=== PATIENT | female | born 1980 | race Caucasian/White ===

== ENCOUNTER 2022-01-13 02:02 | Emergency (ER) | payer OTHER ==
[~2022-01-13] VITALS: Ht 170.2 cm; Wt 77.1 kg
--- NOTE | 2022-01-13 02:25 | NUR ---
Dr. Curiel at bedside for MSE
--- NOTE | 2022-01-13 02:41 | NUR ---
Lab at bedside
[2022-01-13 03:04] LABS: *BILIRUBIN,URIN NEGATIVE (NEGATIVE); *BLOOD, URINE 1+ (NEGATIVE); *CLARITY,URINE CLEAR (CLEAR); *COLOR,URINE YELLOW (YELLOW); *KETONES,URINE 4+ (NEGATIVE); *UROBILINOGEN,URINE 0.2 E.U./dl (NORMAL); LEUKOCYTE ESTERASE ,URINE TRACE (NEGATIVE); NITRITE, URINE NEGATIVE (NEGATIVE); PH,URINE 6.5 (5.0-8.0); UGLUCOSE NEGATIVE (NEGATIVE)
[2022-01-13 03:09] LABS: MEAN CORPUSCULAR HEMOGLOBIN 29.1 uug (24.7-32.8); MEAN CORPUSCULAR VOLUME 85.4 fL (75.5-95.3); PLATELET COUNT (AUTO) 251 K/uL (179-408)
[2022-01-13] MEDS ORDERED: IV NS 1000 ML 1,000 ML IV ONE (03:15)
[2022-01-13 03:19] LABS: BILIRUBIN,DIRECT 0.2 mg/dL (0.0-0.2); BILIRUBIN,TOTAL 0.7 mg/dL (0.2-1.0); CREATININE 0.8 mg/dL (0.6-1.3); POTASSIUM 3.6 mmol/L (3.5-5.1); TOTAL PROTEIN, SERUM 7.3 g/dL (6.4-8.2)
[2022-01-13 03:20] LABS: BACTERIA,URINE FEW /HPF (NONE SEEN); SQUAMOUS EPITHELIAL CELL,UR MODERATE /HPF (NONE SEEN)
[2022-01-13 03:21] LABS: *URINE HCG, QUAL NEGATIVE (NEGATIVE)
--- NOTE | 2022-01-13 03:51 | NUR ---
Ultrasound at bedside
[2022-01-13] MEDS ORDERED: SWABABLE VALVE TRANSFER SET EA MC ONE (05:22)
[2022-01-13] MEDS ORDERED: IV NORMAL SALINE 250 ML IV ONE (05:22)
[2022-01-13] MEDS ORDERED: IOHEXOL 300MG/ML 100 ML INFUS..BTL ONE (05:22)
--- NOTE | 2022-01-13 06:25 | NUR ---
Patient discharged to home in stable condition. Written and verbal after care instructions given. Patient verbalizes understanding of instructions. Stressed follow up or return to ER for worsening s/s.
[2022-01-13 06:26] VITALS: BP 115/78
[2022-01-13] MEDS ORDERED: MAGN296S70 PO (06:26)
== END 2022-01-13 06:29 | disposition home or self-care (01) ==
LOC: ER 02:15
DX: R10.10 Upper abdominal pain, unspecified (principal); K59.00 Constipation, unspecified; Z97.5 Presence of (intrauterine) contraceptive device; R31.9 Hematuria, unspecified
CPT/HCPCS: 36415; 74018; 74177; 76705; 80048; 80076; 81001; 83690; 84703; 85025; 99285; J7040; Q9967; A4663